=== PATIENT | female | born 1975 | race American Indian/Alaskan Native ===

== ENCOUNTER 2017-07-11 12:51 | Emergency (ER) | payer MEDICAID ==
[2017-07-11] MEDS ORDERED: ATIVAN ONE (13:12)
[2017-07-11] MEDS ORDERED: ATIVAN IV ONE (13:13)
--- NOTE | 2017-07-11 13:21 | Emergency Department Report ---
HPI - General Time Seen by Provider: 07/11/17 13:04 - HPI HPI: Room 18 The patient is a 42-year-old female presenting with a chief complaint of seizures. Patient states she had a seizure this morning at approximately 03:00 while in her sleep leading to bladder incontinence. Patient states later this morning she had approximately another 3-4 seizures prompting her daughter to call EMS. The patient states she was changed from Keppra to Topamax, Klonopin and another seizure medication that she cannot recall the name of Location: [facility] Duration: [See above] Quality: Generalized tonic-clonic Severity: Moderate Modifying factors: [see above] Context: [see above] Mode of transportation: [not driving] ED Past Medical Hx - Past Medical History Hx Hypertension: Yes Hx Renal Disease: Yes (STAGE 1) Hx Headaches / Migraines: Yes Hx Seizures: Yes Hx Psychiatric Treatment: Yes (Bipolar, ANXIETY,DEPRESSION) Additional medical history: ANEMIA - Surgical History Additional Surgical History: ankle repair. TUBE IN LEFT EAR. HYSTERECTOMY. C- SECTION X 4 - Family History Family history: no significant - Social History Smoking Status: Former Smoker Substance Use Type: Alcohol - Medications Home Medications: Home Medications Medication Instructions Recorded Confirmed Last Taken Type Bupropion HCl [Bupropion Xl] 150 mg PO QDAY 04/15/14 04/15/14 04/15/14 History Cyclobenzaprine HCl [Flexeril 5mg] 5 mg PO QHS PRN 04/15/14 04/15/14 Unknown History FLUoxetine HCL [Fluoxetine HCl] 40 mg PO QDAY 04/15/14 04/15/14 04/15/14 History Ferrous Sulfate [Feosol] 325 mg PO BID 04/15/14 04/15/14 04/15/14 History HYDROcodone/APAP 5-325 [[place] 1 each PO Q12H PRN 04/15/14 04/15/14 Unknown History 5/325] Lisinopril [Zestril] 20 mg PO QDAY 04/15/14 04/15/14 04/15/14 History Orphenadrine (Nf) [Norflex (Nf)] 100 mg PO QHS PRN 04/15/14 04/15/14 Unknown History Topiramate [Topamax TAB] 25 mg PO BID #14 tablet 04/15/14 Unknown Rx diphenhydrAMINE [Benadryl] 50 mg PO BID 04/15/14 04/15/14 04/15/14 History levETIRAcetam [Keppra] 500 mg PO BID 04/15/14 04/15/14 04/15/14 History HYDROcodone/ACETAMINOPHEN [[place] 1 each PO TID #14 tablet 07/20/14 Unknown Rx 7.5-325 mg TAB] Butalb/Acetamin/Caff 50-325-40 2 tab PO Q8H PRN #14 tablet 11/19/14 Unknown Rx [Fioricet] ED Review of Systems ROS: Stated complaint: AMS Other details as noted in HPI Neurological: other (seizure) Physical Exam - Physical Exam Physical Exam: GENERAL: The patient is well-developed well-nourished female lying on stretcher not appearing to be in acute distress. [] HEENT: Normocephalic. Atraumatic. Extraocular motions are intact. Patient has moist mucous membranes. NECK: Supple. Trachea midline CHEST/LUNGS: Clear to auscultation. There is no respiratory distress noted. HEART/CARDIOVASCULAR: Regular. There is no tachycardia. There is no gallop rub or murmur. ABDOMEN: Abdomen is soft, nontender. Patient has normal bowel sounds. There is no abdominal distention. SKIN: There is no rash. There is no edema. There is no diaphoresis. NEURO: The patient is awake, alert, and oriented. The patient is cooperative. The patient has no focal neurologic deficits. The patient has normal speech. Cranial nerves II through XII grossly intact, no drift MUSCULOSKELETAL: There is no evidence of acute injury. ED Medical Decision Making - Lab Data Result diagrams: 07/11/17 13:28 07/11/17 13:28 Laboratory Tests 07/11/17 07/11/17 13:28 13:28 WBC 6.7 RBC 4.24 Hgb 12.8 Hct 37.7 MCV 89 MCH 30 MCHC 34 RDW 14.5 Plt Count 233 Lymph % (Auto) 43.8 H [place] % (Auto) 5.4 Eos % (Auto) 2.4 Baso % (Auto) 0.7 Lymph # 2.9 B[place]le # 0.4 Eos # 0.2 Baso # 0.0 Seg Neutrophils % 47.7 Seg Neutrophils # 3.2 Sodium 143 Potassium 3.0 L Chloride 101.5 Carbon Dioxide 24 Anion Gap 21 BUN 16 Creatinine 1.0 Estimated GFR > 60 BUN/Creatinine Ratio 16 Glucose 98 Calcium 9.5 Magnesium 1.90 - Differential Diagnosis seizure Critical care attestation.: If time is entered above; I have spent that time in minutes in the direct care of this critically ill patient, excluding procedure time. ED Disposition Clinical Impression: Seizure, Hypokalemia Disposition: DC- TO HOME OR SELFCARE Is pt being admited?: No Does the pt Need Aspirin: No Condition: Stable Instructions: Epilepsy (ED), Recurrent Seizures Adult (ED) Additional Instructions: Return to the emergency department immediately should you develop worsening symptoms, fever, inability to tolerate food or liquid or any other concerns. Referrals: SALMA SPICER MD [Staff Physician] - 3-5 Days PRIMARY CARE, [Primary Care Provider] - 3-5 Days ELI EASLEY MD [Staff Physician] - [facility] (Dr. Easley is a neurologist. Please follow up with him for further evaluation) Time of Disposition: 15:11
[2017-07-11 13:44] LABS: Basophils % (Auto) 0.7 % (0.0-1.8); Eosinophils # (Auto) 0.2 K/mm3 (0.0-0.4); Eosinophils % (Auto) 2.4 % (0.0-4.3); Hematocrit 37.7 % (30.3-42.9); Hemoglobin 12.8 gm/dl (10.1-14.3); Lymphocytes # (Auto) 2.9 K/mm3 (1.2-5.4); Lymphocytes % (Auto) 43.8 % (13.4-35.0); Mean Corpuscular HGB Conc 34 % (30-34); Mean Corpuscular Hemoglobin 30 pg (28-32); Mean Corpuscular Volume 89 fl (79-97); Monocytes # (Auto) 0.4 K/mm3 (0.0-0.8); Monocytes % (Auto) 5.4 % (0.0-7.3); Platelet Count 233 K/mm3 (140-440); Red Blood Count 4.24 M/mm3 (3.65-5.03); Red Cell Distribution Width 14.5 % (13.2-15.2)
[2017-07-11] MEDS ORDERED: ATIVAN IM ONE (13:54)
[2017-07-11 14:07] LABS: BUN/Creatinine Ratio 16; Blood Urea Nitrogen 16 mg/dL (7-17); Calcium 9.5 mg/dL (8.4-10.2); Hemolysis Index 12
[2017-07-11] MEDS ORDERED: K-DUR PO ONE (14:12)
[2017-07-11 15:49] VITALS: BP 106/74
== END 2017-07-11 15:49 | disposition home or self-care (01) ==
LOC: ED 12:51
DX: R56.9 Unspecified convulsions (principal); E87.6 Hypokalemia; I10 Essential (primary) hypertension; G43.909 Migraine, unspecified, not intractable, without status migrainosus
CPT/HCPCS: 36415; 80048; 83735; 85025; 96372; 96374; 99284; J2060

== ENCOUNTER 2017-09-01 08:04 | Emergency (ER) | payer MEDICAID ==
--- NOTE | 2017-09-01 09:35 | Emergency Department Report ---
ED Seizure HPI - General Chief Complaint: Extremity Injury, Lower Stated Complaint: SCREW COMING OUT OF HEEL/SIEZURES Time Seen by Provider: 09/01/17 09:23 Source: patient Mode of arrival: Ambulatory Limitations: No Limitations - History of Present Illness Initial Comments: Patient is 42 years old female history of seizure she stated that she is taking Topamax and klonopine. She said last time she took her Klonopin was last night. Patient stated that she had a seizure around 4:00 this morning and she hurt her left ankle where she had surgery for it before. Patient came to the ER for evaluation of her left ankle, while she is waiting in the waiting room patient had another episode of seizure. She is postictal and she brought to the room. That she is answering all questions appropriately. MD Complaint: seizure -: Sudden - Related Data Home Medications Medication Instructions Recorded Confirmed Last Taken Bupropion HCl [Bupropion Xl] 150 mg PO QDAY 04/15/14 04/15/14 04/15/14 Cyclobenzaprine HCl [Flexeril 5mg] 5 mg PO QHS PRN 04/15/14 04/15/14 Unknown FLUoxetine HCL [Fluoxetine HCl] 40 mg PO QDAY 04/15/14 04/15/14 04/15/14 Ferrous Sulfate [Feosol] 325 mg PO BID 04/15/14 04/15/14 04/15/14 HYDROcodone/APAP 5-325 [[place] 1 each PO Q12H PRN 04/15/14 04/15/14 Unknown 5/325] Lisinopril [Zestril] 20 mg PO QDAY 04/15/14 04/15/14 04/15/14 Orphenadrine (Nf) [Norflex (Nf)] 100 mg PO QHS PRN 04/15/14 04/15/14 Unknown diphenhydrAMINE [Benadryl] 50 mg PO BID 04/15/14 04/15/14 04/15/14 levETIRAcetam [Keppra] 500 mg PO BID 04/15/14 04/15/14 04/15/14 Previous Rx's Medication Instructions Recorded Last Taken Type Topiramate [Topamax TAB] 25 mg PO BID #14 tablet 04/15/14 Unknown Rx HYDROcodone/ACETAMINOPHEN [[place] 1 each PO TID #14 tablet 07/20/14 Unknown Rx 7.5-325 mg TAB] Butalb/Acetamin/Caff 50-325-40 2 tab PO Q8H PRN #14 tablet 11/19/14 Unknown Rx [Fioricet] Allergies Allergy/AdvReac Type Severity Reaction Status Date / Time latex AdvReac Swelling Verified 09/01/17 08:06 ED Review of Systems ROS: Stated complaint: SCREW COMING OUT OF HEEL/SIEZURES Other details as noted in HPI Comment: All other systems reviewed and negative Constitutional: denies: chills, fever Respiratory: denies: cough, orthopnea, shortness of breath, SOB with exertion, SOB at rest, wheezing Cardiovascular: denies: chest pain, palpitations, dyspnea on exertion Gastrointestinal: denies: abdominal pain, nausea, vomiting, diarrhea, constipation Neurological: denies: headache, weakness, numbness, paresthesias ED Past Medical Hx - Past Medical History Hx Hypertension: Yes Hx Renal Disease: Yes (STAGE 1) Hx Headaches / Migraines: Yes Hx Seizures: Yes Hx Psychiatric Treatment: Yes (Bipolar, ANXIETY,DEPRESSION) Additional medical history: ANEMIA - Surgical History Additional Surgical History: ankle repair. TUBE IN LEFT EAR. HYSTERECTOMY. C- SECTION X 4 - Social History Smoking Status: Current Every Day Smoker Substance Use Type: None - Medications Home Medications: Home Medications Medication Instructions Recorded Confirmed Last Taken Type Bupropion HCl [Bupropion Xl] 150 mg PO QDAY 04/15/14 04/15/14 04/15/14 History Cyclobenzaprine HCl [Flexeril 5mg] 5 mg PO QHS PRN 04/15/14 04/15/14 Unknown History FLUoxetine HCL [Fluoxetine HCl] 40 mg PO QDAY 04/15/14 04/15/14 04/15/14 History Ferrous Sulfate [Feosol] 325 mg PO BID 04/15/14 04/15/14 04/15/14 History HYDROcodone/APAP 5-325 [[place] 1 each PO Q12H PRN 04/15/14 04/15/14 Unknown History 5/325] Lisinopril [Zestril] 20 mg PO QDAY 04/15/14 04/15/14 04/15/14 History Orphenadrine (Nf) [Norflex (Nf)] 100 mg PO QHS PRN 04/15/14 04/15/14 Unknown History Topiramate [Topamax TAB] 25 mg PO BID #14 tablet 04/15/14 Unknown Rx diphenhydrAMINE [Benadryl] 50 mg PO BID 04/15/14 04/15/14 04/15/14 History levETIRAcetam [Keppra] 500 mg PO BID 04/15/14 04/15/14 04/15/14 History HYDROcodone/ACETAMINOPHEN [[place] 1 each PO TID #14 tablet 07/20/14 Unknown Rx 7.5-325 mg TAB] Butalb/Acetamin/Caff 50-325-40 2 tab PO Q8H PRN #14 tablet 11/19/14 Unknown Rx [Fioricet] ED Physical Exam - General Limitations: No Limitations General appearance: alert, in no apparent distress - Head Head exam: Present: atraumatic, normocephalic, normal inspection - Eye Eye exam: Present: normal appearance, PERRL - ENT ENT exam: Present: normal exam - Neck Neck exam: Present: normal inspection, full ROM. Absent: tenderness, meningismus, lymphadenopathy, thyromegaly - Respiratory Respiratory exam: Present: normal lung sounds bilaterally. Absent: respiratory distress, wheezes, rales, rhonchi, stridor, chest wall tenderness, accessory muscle use, decreased breath sounds, prolonged expiratory - Cardiovascular Cardiovascular Exam: Present: regular rate, normal rhythm, normal heart sounds - GI/Abdominal GI/Abdominal exam: Present: soft, normal bowel sounds. Absent: distended, tenderness, guarding, rebound, rigid, organomegaly, mass, bruit, pulsatile mass , hernia - Extremities Exam Extremities exam: Present: normal inspection, full ROM, normal capillary refill - Back Exam Back exam: Present: normal inspection, full ROM. Absent: tenderness, CVA tenderness (R), CVA tenderness (L), muscle spasm, paraspinal tenderness, vertebral tenderness - Neurological Exam Neurological exam: Present: alert, oriented X3, CN II-XII intact, normal gait - Skin Skin exam: Present: warm, intact, normal color ED Course Vital Signs 09/01/17 08:06 Temperature 98.4 F Pulse Rate 94 H Respiratory 18 Rate Blood Pressure 114/83 O2 Sat by Pulse 100 Oximetry - Reevaluation(s) Reevaluation #1: 09/01/17 11:56 Patient stated that she is feeling much better. No seizure activity observed in the ER. Patient is alert oriented 3. She is asking for an [place] wrap for her left ankle. ED Medical Decision Making - Lab Data Result diagrams: 09/01/17 09:26 09/01/17 09:26 - Radiology Data Radiology results: report reviewed Referring Physician: NICHOLE PLAZA Patient Name: JAIME JIMENEZ Date of : 1975 Sex: Female Report Date: 2017-09-01 Report Status: Finalized Findings [facility] [address] [place] [address] XRay Report Signed Patient: JAIME JIMENEZ MR#: [id number] : 1975 Acct:[id number] Age/Sex: 42 / F ADM Date: 09/01/17 Loc: ED Attending Dr: Ordering Physician: NICHOLE PLAZA Date of Service: 09/01/17 Procedure(s): XR ankle 3+V LT Accession Number(s): [id number] cc: NICHOLE PLAZA Fluoro Time In Minutes: LEFT ANKLE, 3 views: History: left ankle pain, injury. Compared to 07/21/14. There has been previous fusion of the hindfoot with metal screws and clips. 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 No evidence for fracture, dislocation or bone lesion. Mild diffuse soft tissue swelling is noted. IMPRESSION: Postsurgical changes. Degenerative changes. Soft tissue swelling or edema. No acute osseous injury identified. Transcribed By: TTR Dictated By: JAHAIRA BLACKBURN JR, MD Electronically Authenticated By: JAHAIRA BLACKBURN JR, MD Signed Date/Time: 09/01/17 1018 DD/ 1016 TD/TT: 09/01/17 1018 Critical care attestation.: If time is entered above; I have spent that time in minutes in the direct care of this critically ill patient, excluding procedure time. ED Disposition Clinical Impression: Seizure, Left ankle sprain Disposition: DC-01 TO HOME OR SELFCARE Is pt being admited?: No Condition: Stable Instructions: Recurrent Seizures Adult (ED), Ankle Sprain (ED)
[2017-09-01 09:39] LABS: Basophils # (Auto) 0.1 K/mm3 (0.0-0.1); Basophils % (Auto) 0.8 % (0.0-1.8); Eosinophils # (Auto) 0.1 K/mm3 (0.0-0.4); Eosinophils % (Auto) 1.8 % (0.0-4.3); Hematocrit 40.9 % (30.3-42.9); Hemoglobin 13.8 gm/dl (10.1-14.3); Lymphocytes # (Auto) 3.7 K/mm3 (1.2-5.4); Lymphocytes % (Auto) 45.4 % (13.4-35.0); Mean Corpuscular HGB Conc 34 % (30-34); Mean Corpuscular Hemoglobin 30 pg (28-32); Mean Corpuscular Volume 89 fl (79-97); Monocytes # (Auto) 0.4 K/mm3 (0.0-0.8); Monocytes % (Auto) 5.4 % (0.0-7.3); Platelet Count 276 K/mm3 (140-440); Red Blood Count 4.59 M/mm3 (3.65-5.03); Red Cell Distribution Width 14.2 % (13.2-15.2)
[2017-09-01 09:56] LABS: Alanine Aminotransferase 14 units/L (7-56); Albumin 4.1 g/dL (3.9-5); BUN/Creatinine Ratio 15; Blood Urea Nitrogen 12 mg/dL (7-17); Calcium 9.4 mg/dL (8.4-10.2); Hemolysis Index 33
--- NOTE | 2017-09-01 10:26 | XRay Report ---
LEFT ANKLE, 3 views: History: left ankle pain, injury. Compared to 07/21/14. There has been previous fusion of the hindfoot with metal screws and clips. 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 No evidence for fracture, dislocation or bone lesion. Mild diffuse soft tissue swelling is noted. IMPRESSION: Postsurgical changes. Degenerative changes. Soft tissue swelling or edema. No acute osseous injury identified.
[2017-09-01 12:26] VITALS: BP 115/82
== END 2017-09-01 13:00 | disposition home or self-care (01) ==
LOC: ED 08:04
DX: S93.402A Sprain of unspecified ligament of left ankle, initial encounter (principal); I12.9 Hypertensive chronic kidney disease with stage 1 through stage 4 chronic kidney disease, or unspecified chronic kidney disease; N18.1 Chronic kidney disease, stage 1; F31.9 Bipolar disorder, unspecified; F41.9 Anxiety disorder, unspecified; Z96.22 Myringotomy tube(s) status; F17.200 Nicotine dependence, unspecified, uncomplicated; Z90.710 Acquired absence of both cervix and uterus; Z86.2 Personal history of diseases of the blood and blood-forming organs and certain disorders involving the immune mechanism; X58.XXXA Exposure to other specified factors, initial encounter; Y93.89 Activity, other specified; Y92.89 Other specified places as the place of occurrence of the external cause; Y99.8 Other external cause status
CPT/HCPCS: 36415; 80053; 85025; 99284